=== PATIENT | female | born 1965 | race Caucasian/White ===

== ENCOUNTER 2021-01-26 00:05 | Emergency (ER) | payer SELFPAY ==
[2021-01-26] MEDS ORDERED: Sodium Chloride 0.9% 1,000 ML IV ONE (00:22)
--- NOTE | 2021-01-26 00:24 | EDM.PDOC ---
ED HPI GENERAL MEDICAL PROBLEM - General Chief Complaint: Drug or Alcohol Abuse Stated Complaint: SUICIDAL Time Seen by Provider: 01/26/21 00:24 - History of Present Illness INITIAL COMMENTS - FREE TEXT/NARRATIVE: 55-year-old female brought in by a local Police Department suicidal and possible ingestion of rubbing alcohol. The patient was sitting near the side of the street. Police stopped to check on her she had a nearly full bottle of rubbing alcohol in her possession and stated she wanted to kill herself. The bottle is completely full or nearly completely full. The patient will not give any more history to me but she did state that she wanted to hurt herself and . Her history is fairly vague she will not answer questions about past psychiatric history recent or drug or alcohol abuse. It was rumored that at 1 point she wanted to go to alcohol rehab. Her social situation is very vague. - Related Data Allergies Allergy/AdvReac Type Severity Reaction Status Date / Time No Known Allergies Allergy Verified 01/26/21 00:13 Home Meds: Home Meds . [No Known Home Meds] 01/26/21 [History] Social & Family History - Tobacco Use Tobacco Use Status *Q: Current Every Day Tobacco User Years of Tobacco use: 43 Packs/Tins Daily: 1 - Alcohol Use Days Per Week of Alcohol Use: 7 Number of Drinks Per Day: 10 Total Drinks Per Week: 70 - Recreational Drug Use Recreational Drug Use: Yes Drug Use in Last 12 Months: No Recreational Drug Type: Reports: Methamphetamine ED ROS GENERAL - Review of Systems Review Of Systems: See Below Reason Not Obtained: Patient will not cooperate with answering too many questions. Ho Constitutional: Reports: Other (He denies any sort of pain) ED EXAM, GENERAL - Physical Exam Exam: See Below Exam Limited By: Uncooperative General Appearance: Anxious, Moderate Distress Eye Exam: Bilateral Eye: Normal Inspection Ears: Normal External Exam, Normal Canal, Hearing Grossly Normal, Normal TMs Nose: Normal Inspection, Normal Mucosa, No Blood Throat/Mouth: Normal Inspection, Normal Lips, Normal Gums, Normal Oropharynx, Normal Voice, No Airway Compromise Head: Atraumatic, Normocephalic Neck: Normal Inspection, Supple, Non-Tender, Full Range of Motion. No: Lymphadenopathy (L), Lymphadenopathy (R) Respiratory/Chest: No Respiratory Distress, Lungs Clear, Normal Breath Sounds, Chest Non-Tender Cardiovascular: Normal Peripheral Pulses, Regular Rate, Rhythm, No Edema GI/Abdominal: Normal Bowel Sounds, Soft, Non-Tender Back Exam: Normal Inspection. No: CVA Tenderness (L), CVA Tenderness (R) Extremities: Normal Inspection, No Pedal Edema Neurological: Alert Psychiatric: Anxious Skin Exam: Warm, Dry, Intact Lymphatic: No Adenopathy Course - Vital Signs Last Recorded V/S: Last Vital Signs Temp 36.8 C 01/26/21 01:35 Pulse 84 01/26/21 06:00 Resp 14 01/26/21 06:00 BP 85/56 L 01/26/21 05:00 Pulse Ox 96 01/26/21 06:00 - Orders/Labs/Meds Orders: Active Orders 24 hr Category Date Time Status Initiate/Renew Violent-Self Destructive Restraints >/= Care 01/26/21 05:30 Ordered 17yo Q4H Nrsg Assess: Viol-S.Dest Rest [RC] Q1H Care 01/26/21 05:19 Active Head wo Cont [CT] Stat Exams 01/26/21 02:00 Taken Lactated Ringers [Ringers, Lactated] 1,000 ml Med 01/26/21 01:30 Active IV ASDIRECTED cefTRIAXone [Rocephin] 2 gm Med 01/26/21 04:45 Active Sodium Chloride 0.9% [Normal Saline] 100 ml IV Q24H Medication Orders Lactated Ringer's (Ringers, Lactated) 1,000 mls @ 999 mls/hr IV ASDIRECTED JEOVANNY Last Infusion: 01/26/21 02:07 Dose: 300 mls/hr Documented by: Admin: 01/26/21 01:35 Dose: 999 mls/hr Documented by: LALA Ceftriaxone Sodium 2 gm/ (Sodium Chloride) 100 mls @ 200 mls/hr IV Q24H JEOVANNY Last Admin: 01/26/21 04:30 Dose: 200 mls/hr Documented by: SERGE Labs: Laboratory Tests 01/26/21 01/26/21 01/26/21 Range/Units 00:07 00:07 00:07 WBC 10.77 H (3.98-10.04) K/mm3 RBC 4.97 (3.98-5.22) M/mm3 Hgb 15.5 (11.2-15.7) gm/dl Hct 44.0 (34.1-44.9) % MCV 88.5 (79.4-94.8) fl MCH 31.2 (25.6-32.2) pg MCHC 35.2 (32.2-35.5) g/dl RDW Std Deviation 41.0 (36.4-46.3) fL Plt Count 231 (182-369) K/mm3 MPV 12.2 (9.4-12.3) fl Neut % (Auto) 36.9 (34.0-71.1) % Lymph % (Auto) 53.9 H (19.3-51.7) % [place] % (Auto) 7.8 (4.7-12.5) % Eos % (Auto) 0.8 (0.7-5.8) Baso % (Auto) 0.5 (0.1-1.2) % Neut # (Auto) 3.98 (1.56-6.13) K/mm3 Lymph # (Auto) 5.80 H (1.18-3.74) K/mm3 [place] # (Auto) 0.84 H (0.24-0.36) K/mm3 Eos # (Auto) 0.09 (0.04-0.36) K/mm3 Baso # (Auto) 0.05 (0.01-0.08) K/mm3 Manual Slide Review Sodium 144 (136-145) mEq/L Potassium 2.7 L (3.5-5.1) mEq/L Chloride 108 H (98-107) mEq/L Carbon Dioxide 20 L (21-32) mEq/L Anion Gap 18.7 H (5-15) BUN 11 (7-18) mg/dL Creatinine 1.3 H (0.55-1.02) mg/dL Est Cr Clr Drug Dosing 39.97 mL/min Estimated GFR (MDRD) 42 (>60) mL/min BUN/Creatinine Ratio 8.5 L (14-18) Glucose 142 H (70-99) mg/dL Calcium 9.2 (8.5-10.1) mg/dL Magnesium (1.8-2.4) mg/dL Total Bilirubin 0.5 (0.2-1.0) mg/dL AST 25 (15-37) U/L ALT 17 (14-59) U/L Alkaline Phosphatase 95 (46-116) U/L Total Protein 7.8 (6.4-8.2) g/dl Albumin 3.8 (3.4-5.0) g/dl Globulin 4.0 gm/dL Albumin/Globulin Ratio 1.0 (1-2) TSH 3rd Generation (0.358-3.74) uIU/mL HCG, Qual (NEGATIVE) Urine Color (Yellow) Urine Appearance (Clear) Urine pH (5.0-8.0) Ur Specific [place] (1.005-1.030) Urine Protein (Negative) Urine Glucose (UA) (Negative) Urine Ketones (Negative) Urine Occult Blood (Negative) Urine Nitrite (Negative) Urine Bilirubin (Negative) Urine Urobilinogen (0.2-1.0) Ur Leukocyte Esterase (Negative) U Hyaline Cast (Auto) (0-5) /lpf Urine RBC (0-5) /hpf Urine WBC (0-5) /hpf Ur Squamous Epith Cells (0-5) /hpf Urine Bacteria (FEW) /hpf Urine Mucus (FEW) /hpf Salicylates 1.7 L (2.8-20) mg/dL Urine Opiates Screen (RNNRUG=039) Ur Buprenorphine Scrn (CUTOFF=10) Ur Oxycodone Screen (UUZ7PW=238) Urine Methadone Screen (LAJUES=806) Ur Propoxyphene Screen (NVTZHW=616) Acetaminophen 0 L (10-30) ug/mL Ur Barbiturates Screen (ZNWION=453) Ur Tricyclics Screen (AHXKDO=107) Ur Phencyclidine Scrn (CUTOFF=25) Ur Amphetamine Screen (OYZAMI=599) U Methamphetamines Scrn (LCXPZJ=860) U Benzodiazepines Scrn (QRIZDQ=113) U Cocaine Metab Screen (MJYMTQ=046) U Marijuana (THC) Screen (CUTOFF=50) Ethyl Alcohol 0.00 (0.00) gm% SARS-CoV-2 RNA (JAMI) (NEGATIVE) 01/26/21 01/26/21 01/26/21 Range/Units 00:07 00:07 00:07 WBC (3.98-10.04) K/mm3 RBC (3.98-5.22) M/mm3 Hgb (11.2-15.7) gm/dl Hct (34.1-44.9) % MCV (79.4-94.8) fl MCH (25.6-32.2) pg MCHC (32.2-35.5) g/dl RDW Std Deviation (36.4-46.3) fL Plt Count (182-369) K/mm3 MPV (9.4-12.3) fl Neut % (Auto) (34.0-71.1) % Lymph % (Auto) (19.3-51.7) % [place] % (Auto) (4.7-12.5) % Eos % (Auto) (0.7-5.8) Baso % (Auto) (0.1-1.2) % Neut # (Auto) (1.56-6.13) K/mm3 Lymph # (Auto) (1.18-3.74) K/mm3 [place] # (Auto) (0.24-0.36) K/mm3 Eos # (Auto) (0.04-0.36) K/mm3 Baso # (Auto) (0.01-0.08) K/mm3 Manual Slide Review Sodium (136-145) mEq/L Potassium (3.5-5.1) mEq/L Chloride (98-107) mEq/L Carbon Dioxide (21-32) mEq/L Anion Gap (5-15) BUN (7-18) mg/dL Creatinine (0.55-1.02) mg/dL Est Cr Clr Drug Dosing mL/min Estimated GFR (MDRD) (>60) mL/min BUN/Creatinine Ratio (14-18) Glucose (70-99) mg/dL Calcium (8.5-10.1) mg/dL Magnesium 2.0 (1.8-2.4) mg/dL Total Bilirubin (0.2-1.0) mg/dL AST (15-37) U/L ALT (14-59) U/L Alkaline Phosphatase (46-116) U/L Total Protein (6.4-8.2) g/dl Albumin (3.4-5.0) g/dl Globulin gm/dL Albumin/Globulin Ratio (1-2) TSH 3rd Generation 1.706 (0.358-3.74) uIU/mL HCG, Qual Negative (NEGATIVE) Urine Color (Yellow) Urine Appearance (Clear) Urine pH (5.0-8.0) Ur Specific [place] (1.005-1.030) Urine Protein (Negative) Urine Glucose (UA) (Negative) Urine Ketones (Negative) Urine Occult Blood (Negative) Urine Nitrite (Negative) Urine Bilirubin (Negative) Urine Urobilinogen (0.2-1.0) Ur Leukocyte Esterase (Negative) U Hyaline Cast (Auto) (0-5) /lpf Urine RBC (0-5) /hpf Urine WBC (0-5) /hpf Ur Squamous Epith Cells (0-5) /hpf Urine Bacteria (FEW) /hpf Urine Mucus (FEW) /hpf Salicylates (2.8-20) mg/dL Urine Opiates Screen (NJXUCV=483) Ur Buprenorphine Scrn (CUTOFF=10) Ur Oxycodone Screen (BKP4KH=857) Urine Methadone Screen (UJGBAL=677) Ur Propoxyphene Screen (OBGQYG=732) Acetaminophen (10-30) ug/mL Ur Barbiturates Screen (YOIOXE=982) Ur Tricyclics Screen (KKDJVN=718) Ur Phencyclidine Scrn (CUTOFF=25) Ur Amphetamine Screen (EROPZX=388) U Methamphetamines Scrn (MHCIZG=256) U Benzodiazepines Scrn (HFHNGS=828) U Cocaine Metab Screen (TCJATP=322) U Marijuana (THC) Screen (CUTOFF=50) Ethyl Alcohol (0.00) gm% SARS-CoV-2 RNA (JAMI) (NEGATIVE) 01/26/21 01/26/21 01/26/21 Range/Units 00:20 00:21 00:24 WBC (3.98-10.04) K/mm3 RBC (3.98-5.22) M/mm3 Hgb (11.2-15.7) gm/dl Hct (34.1-44.9) % MCV (79.4-94.8) fl MCH (25.6-32.2) pg MCHC (32.2-35.5) g/dl RDW Std Deviation (36.4-46.3) fL Plt Count (182-369) K/mm3 MPV (9.4-12.3) fl Neut % (Auto) (34.0-71.1) % Lymph % (Auto) (19.3-51.7) % [place] % (Auto) (4.7-12.5) % Eos % (Auto) (0.7-5.8) Baso % (Auto) (0.1-1.2) % Neut # (Auto) (1.56-6.13) K/mm3 Lymph # (Auto) (1.18-3.74) K/mm3 [place] # (Auto) (0.24-0.36) K/mm3 Eos # (Auto) (0.04-0.36) K/mm3 Baso # (Auto) (0.01-0.08) K/mm3 Manual Slide Review Sodium (136-145) mEq/L Potassium (3.5-5.1) mEq/L Chloride (98-107) mEq/L Carbon Dioxide (21-32) mEq/L Anion Gap (5-15) BUN (7-18) mg/dL Creatinine (0.55-1.02) mg/dL Est Cr Clr Drug Dosing mL/min Estimated GFR (MDRD) (>60) mL/min BUN/Creatinine Ratio (14-18) Glucose (70-99) mg/dL Calcium (8.5-10.1) mg/dL Magnesium (1.8-2.4) mg/dL Total Bilirubin (0.2-1.0) mg/dL AST (15-37) U/L ALT (14-59) U/L Alkaline Phosphatase (46-116) U/L Total Protein (6.4-8.2) g/dl Albumin (3.4-5.0) g/dl Globulin gm/dL Albumin/Globulin Ratio (1-2) TSH 3rd Generation (0.358-3.74) uIU/mL HCG, Qual (NEGATIVE) Urine Color Yellow (Yellow) Urine Appearance Slt cloudy H (Clear) Urine pH 6.0 (5.0-8.0) Ur Specific [place] 1.020 (1.005-1.030) Urine Protein Trace H (Negative) Urine Glucose (UA) Negative (Negative) Urine Ketones Negative (Negative) Urine Occult Blood Trace-intact H (Negative) Urine Nitrite Negative (Negative) Urine Bilirubin Negative (Negative) Urine Urobilinogen 0.2 (0.2-1.0) Ur Leukocyte Esterase 2+ H (Negative) U Hyaline Cast (Auto) 5-10 H (0-5) /lpf Urine RBC 5-10 H (0-5) /hpf Urine WBC 20-30 H (0-5) /hpf Ur Squamous Epith Cells 0-5 (0-5) /hpf Urine Bacteria Many H (FEW) /hpf Urine Mucus Few (FEW) /hpf Salicylates (2.8-20) mg/dL Urine Opiates Screen Negative (WODOVG=798) Ur Buprenorphine Scrn Negative (CUTOFF=10) Ur Oxycodone Screen Negative (XCN0RB=081) Urine Methadone Screen Negative (MKSIDG=020) Ur Propoxyphene Screen Negative (LIMZBY=219) Acetaminophen (10-30) ug/mL Ur Barbiturates Screen Negative (RECDEK=329) Ur Tricyclics Screen Negative (ZZECME=500) Ur Phencyclidine Scrn Negative (CUTOFF=25) Ur Amphetamine Screen Negative (IGMAFX=982) U Methamphetamines Scrn Negative (XDISEQ=391) U Benzodiazepines Scrn Negative (YKHXTV=631) U Cocaine Metab Screen Negative (BOXNFW=173) U Marijuana (THC) Screen Negative (CUTOFF=50) Ethyl Alcohol (0.00) gm% SARS-CoV-2 RNA (JAMI) Negative (NEGATIVE) 01/26/21 Range/Units 06:22 WBC (3.98-10.04) K/mm3 RBC (3.98-5.22) M/mm3 Hgb (11.2-15.7) gm/dl Hct (34.1-44.9) % MCV (79.4-94.8) fl MCH (25.6-32.2) pg MCHC (32.2-35.5) g/dl RDW Std Deviation (36.4-46.3) fL Plt Count (182-369) K/mm3 MPV (9.4-12.3) fl Neut % (Auto) (34.0-71.1) % Lymph % (Auto) (19.3-51.7) % [place] % (Auto) (4.7-12.5) % Eos % (Auto) (0.7-5.8) Baso % (Auto) (0.1-1.2) % Neut # (Auto) (1.56-6.13) K/mm3 Lymph # (Auto) (1.18-3.74) K/mm3 [place] # (Auto) (0.24-0.36) K/mm3 Eos # (Auto) (0.04-0.36) K/mm3 Baso # (Auto) (0.01-0.08) K/mm3 Manual Slide Review Sodium (136-145) mEq/L Potassium 3.7 (3.5-5.1) mEq/L Chloride (98-107) mEq/L Carbon Dioxide (21-32) mEq/L Anion Gap (5-15) BUN (7-18) mg/dL Creatinine (0.55-1.02) mg/dL Est Cr Clr Drug Dosing mL/min Estimated GFR (MDRD) (>60) mL/min BUN/Creatinine Ratio (14-18) Glucose (70-99) mg/dL Calcium (8.5-10.1) mg/dL Magnesium (1.8-2.4) mg/dL Total Bilirubin (0.2-1.0) mg/dL AST (15-37) U/L ALT (14-59) U/L Alkaline Phosphatase (46-116) U/L Total Protein (6.4-8.2) g/dl Albumin (3.4-5.0) g/dl Globulin gm/dL Albumin/Globulin Ratio (1-2) TSH 3rd Generation (0.358-3.74) uIU/mL HCG, Qual (NEGATIVE) Urine Color (Yellow) Urine Appearance (Clear) Urine pH (5.0-8.0) Ur Specific [place] (1.005-1.030) Urine Protein (Negative) Urine Glucose (UA) (Negative) Urine Ketones (Negative) Urine Occult Blood (Negative) Urine Nitrite (Negative) Urine Bilirubin (Negative) Urine Urobilinogen (0.2-1.0) Ur Leukocyte Esterase (Negative) U Hyaline Cast (Auto) (0-5) /lpf Urine RBC (0-5) /hpf Urine WBC (0-5) /hpf Ur Squamous Epith Cells (0-5) /hpf Urine Bacteria (FEW) /hpf Urine Mucus (FEW) /hpf Salicylates (2.8-20) mg/dL Urine Opiates Screen (DURIPA=919) Ur Buprenorphine Scrn (CUTOFF=10) Ur Oxycodone Screen (EJP2VZ=629) Urine Methadone Screen (IAYJHZ=781) Ur Propoxyphene Screen (HAHVYL=007) Acetaminophen (10-30) ug/mL Ur Barbiturates Screen (CYXFKO=829) Ur Tricyclics Screen (QPWQYT=540) Ur Phencyclidine Scrn (CUTOFF=25) Ur Amphetamine Screen (HGCOMB=283) U Methamphetamines Scrn (TQBVPP=718) U Benzodiazepines Scrn (QEPKUN=149) U Cocaine Metab Screen (SEFHZG=921) U Marijuana (THC) Screen (CUTOFF=50) Ethyl Alcohol (0.00) gm% SARS-CoV-2 RNA (JAMI) (NEGATIVE) Meds: Medications Generic Name Dose Route Start Last Admin Trade Name Freq PRN Reason Stop Dose Admin Lactated Ringer's 1,000 mls @ 999 mls/hr 01/26/21 01:30 01/26/21 02:07 Ringers, Lactated IV 300 mls/hr ASDIRECTED JEOVANNY Infusion Ceftriaxone Sodium 2 gm/ 100 mls @ 200 mls/hr 01/26/21 04:45 01/26/21 04:30 Sodium Chloride IV 200 mls/hr Q24H JEOVANNY Administration Discontinued Medications Generic Name Dose Route Start Last Admin Trade Name Freq PRN Reason Stop Dose Admin Diphenhydramine HCl 50 mg 01/26/21 04:51 01/26/21 05:42 Diphenhydramine 50 Mg/Ml Sdv IVPUSH 01/26/21 04:52 50 mg ONETIME ONE Administration Haloperidol Lactate 5 mg 01/26/21 04:50 01/26/21 05:01 Haloperidol Lactate 5 Mg/Ml Sdv IVPUSH 01/26/21 04:51 5 mg ONETIME ONE Administration Sodium Chloride 1,000 mls @ 999 mls/hr 01/26/21 00:22 01/26/21 00:23 Normal Saline IV 01/26/21 01:22 999 mls/hr ONETIME ONE Administration Potassium Chloride 10 meq/ 100 mls @ 100 mls/hr 01/26/21 02:00 01/26/21 05:47 Premix IV 01/26/21 05:59 100 mls/hr Q1H JEOVANNY Administration Lorazepam 2 mg 01/26/21 02:57 01/26/21 03:06 Lorazepam 2 Mg/Ml Sdv IVPUSH 01/26/21 02:58 2 mg ONETIME ONE Administration Lorazepam Confirm 01/26/21 03:58 01/26/21 04:03 Lorazepam 2 Mg/Ml Sdv Administered 01/26/21 03:59 Not Given Dose 2 mg .ROUTE .STK-MED ONE Lorazepam 1 mg 01/26/21 04:00 01/26/21 04:05 Lorazepam 2 Mg/Ml Sdv IVPUSH 01/26/21 04:01 1 mg ONETIME ONE Administration Ondansetron HCl 4 mg 01/26/21 00:27 01/26/21 00:32 Ondansetron 4 Mg/2 Ml Sdv IVPUSH 01/26/21 00:28 4 mg ONETIME ONE Administration Potassium Chloride 40 meq 01/26/21 01:58 01/26/21 06:25 Potassium Chloride 20 Meq Tab.Er PO 01/26/21 01:59 Not Given ONETIME ONE - Re-Assessments/Exams Free Text/Narrative Re-Assessment/Exam: 01/26/21 06:13 Rest the labs presentation and emergency room course with Dr. Lorenz, psyc hiatrist at [facility] in [place] who kindly accepts the patient. Patient's has a significant hypokalemia with potassium of 2.7 she is received 40 mEq IV thus far. We will recheck her potassium. Initial labs drug screen was negative alcohol was negative. She has medically not had any problems here. She has been agitated at times she has received 4 mg of Ativan 5 mg of Haldol 50 mg of Benadryl, and is doing much better at this time. The patient was found to have a UTI she received 1 g of Rocephin IV. We will recheck her potassium at this time anticipate giving more potassium. During her stay the patient required 4 mg of Ativan 5 mg of Haldol [address] Lorenz did recommend 10 mg of Haldol prior to transport he is awoke aware of the patient's UTI and hypokalemia status. 01/26/21 07:02 Her potassium recheck is not resulted in the system but I did call the lab and they reported to me that it was 3.7 Departure - Departure Time of Disposition: 06:10 Disposition: DC/Tfer to Acute Hospital 02 Clinical Impression: Suicidal risk, Hypokalemia, Urinary tract infection - Discharge Information Referrals: PCP,None [Primary Care Provider] - Forms: ED Department Discharge Sepsis Event Note (ED) - Evaluation Sepsis Screening Result: No Definite Risk - Focused Exam Vital Signs: Vital Signs Temp Pulse Resp BP Pulse Ox 01/26/21 06:00 84 14 96 01/26/21 05:00 100 16 85/56 L 98 01/26/21 03:52 92 18 98 01/26/21 01:35 36.8 C 86 16 98 01/26/21 00:09 36.9 C 113 H 16 119/80 98 - My Orders Last 24 Hours: My Active Orders 01/26/21 01:30 Lactated Ringers [Ringers, Lactated] 1,000 ml IV ASDIRECTED 01/26/21 02:00 Head wo Cont [CT] Stat 01/26/21 04:45 cefTRIAXone [Rocephin] 2 gm Sodium Chloride 0.9% [Normal Saline] 100 ml IV Q24H 01/26/21 05:19 Nrsg Assess: SandraDest Rest [RC] Q1H 01/26/21 05:30 Initiate/Renew Violent-Self Destructive Restraints >/=18yo Q4H - Assessment/Plan Last 24 Hours: My Active Orders 01/26/21 01:30 Lactated Ringers [Ringers, Lactated] 1,000 ml IV ASDIRECTED 01/26/21 02:00 Head wo Cont [CT] Stat 01/26/21 04:45 cefTRIAXone [Rocephin] 2 gm Sodium Chloride 0.9% [Normal Saline] 100 ml IV Q24H 01/26/21 05:19 Nrsg Assess: Keith-S.Dest Rest [RC] Q1H 01/26/21 05:30 Initiate/Renew Violent-Self Destructive Restraints >/=18yo Q4H
[2021-01-26] MEDS ORDERED: Ondansetron 4 MG/2 ML SDV IVPUSH ONE (00:27)
[2021-01-26] MEDS ORDERED: Lactated Ringers 1,000 ML IV SCH (01:30)
[2021-01-26] MEDS ORDERED: Potassium Chloride 20 MEQ Tab.ER PO ONE (01:58)
[2021-01-26] MEDS: Potassium Chloride 10 MEQ in Premix Bag 1 BAG IV SCH ×4 (02:07→05:47)
[2021-01-26] MEDS ORDERED: LORazepam 2 MG/ML SDV IVPUSH ONE ×2 (02:57→04:00)
[2021-01-26] MEDS ORDERED: LORazepam 2 MG/ML SDV ONE (03:58)
[2021-01-26] MEDS ORDERED: cefTRIAXone 2 GM in Sodium Chloride 0.9% 100 ML IV SCH (04:45)
[2021-01-26] MEDS ORDERED: Haloperidol Lactate 5 MG/ML SDV IVPUSH ONE (04:50)
[2021-01-26] MEDS ORDERED: diphenhydrAMINE 50 MG/ML SDV IVPUSH ONE (04:51)
--- NOTE | 2021-01-26 07:05 | CT ---
Head CT Technique: Multiple axial sections through the brain were obtained. Intravenous contrast was not utilized. Reconstructed coronal and sagittal images were obtained. Findings: Ventricles along with basal cisterns and sulci over the convexities are mildly prominent. No abnormal parenchymal densities are seen. No evidence of intracranial hemorrhage is seen. No midline shift or mass-effect is seen. Bone window settings were reviewed which show no acute finding within the visualized paranasal sinuses or mastoid sinuses. No acute calvarial abnormality is appreciated. Impression: 1. Mild generalized atrophy. 2. Nothing acute is appreciated on noncontrasted CT study. Diagnostic code #2 I agree with preliminary report from [facility], finalized on 01/26/21, 6:41 AM CDT, code 1
== END 2021-01-26 07:15 ==
LOC: JD.ED 00:05
DX: R45.851 Suicidal ideations (principal); E87.6 Hypokalemia; N39.0 Urinary tract infection, site not specified; Z72.0 Tobacco use; Z20.822 Contact with and (suspected) exposure to COVID-19
CPT/HCPCS: 36415; 70450; 80053; 80143; 80179; 80306; 80307; 81001; 83735; 84132; 84443; 84703; 85025; 87635; 96365; 96366; 96368; 96375; 96376; 99285; J0696; J1200; J1630; J2060; J2405; J3480; J7030; J7120; 99283; U0002